=== PATIENT | male | born 1955 | race African-American/Black ===

== ENCOUNTER 2016-09-23 00:40 | Inpatient (IN) ==
[2016-09-23] MEDS ORDERED: ZOFRAN IV PRN (04:29)
[2016-09-23] MEDS ORDERED: TYLENOL PO PRN (04:29)
[2016-09-23] MEDS: NS 1,000 ML IV SCH ×2 (04:30→13:53)
[2016-09-23] MEDS: HUMALOG SUBQ SCH ×4 (06:29→20:34)
[2016-09-23] MEDS: PRILOSEC PO SCH (06:29)
[2016-09-23] MEDS: ZOSYN 3.375 GM/NS 3.375 GM/50 ML IVPB IV SCH ×3 (06:39→18:00)
[2016-09-23 07:03] LABS: BASO% 0.2 % (0.0-0.8); EOS# 0.01 X1000 (0.0-0.7); EOS% 0.1 % (0.0-10.0); HEMATOCRIT 31.3 % (42.0-52.0); HEMOGLOBIN 9.9 g/dL (14.0-18.0); IMM GRAN# 0.11 X1000 (0.0-0.04); IMM GRAN% 0.6 % (0.0-0.5); LYMPH# 0.35 X1000 (1.2-3.4); LYMPH% 1.9 % (20.5-51.1); MANUAL DIFF NEEDED? YES; MCH 25.1 PG (27-31); MCHC 31.6 g/dL (33-37); MCV 79.2 FL (81-99); MONO# 0.64 X1000 (0.11-0.59); MONO% 3.5 % (1.7-9.3); MPV 9.5 FL (7.4-10.4); NEUT% 93.7 % (42.2-75.2); PLT 140 X1000 (130-400); RBC 3.95 XMIL (4.7-6.1)
[2016-09-23 07:07] LABS: INR 1.39; PROTIME 14.9 Seconds (9.2-11.7); PTT 36.5 Seconds (22.0-36.0)
[2016-09-23 07:24] LABS: BANDS 12 % (0-1); LYMPHS 2 % (21-51); MONO 2 % (1-9)
[2016-09-23 07:26] LABS: IRON SATURATION 4 %; TIBC 180 ug/dL
[2016-09-23 07:28] LABS: ALBUMIN 2.8 g/dL (3.5-5.0); CALCIUM 8.3 mg/dL (8.8-10.2); POTASSIUM 3.6 mmol/L (3.5-5.1); TOTAL BILIRUBIN 1.1 mg/dL (0.20-1.00); TOTAL IRON 8 ug/dL (53-167); TOTAL PROTEIN 6.6 g/dL (6.3-8.3); UNBOUND IRON 172 ug/dL (112-346)
[2016-09-23 07:52] LABS: FERRITIN 626 ng/mL (30-400)
[2016-09-23 07:53] LABS: MAGNESIUM 0.9 mg/dL (1.5-2.7)
[2016-09-23 08:07] LABS: URINE MICRO REVIEW NEEDED? NO; URINE SOURCE CLEAN CATCH
--- NOTE | 2016-09-23 08:19 | HISTORY AND PHYSICAL ---
PRIMARY CARE PROVIDER: Nazario Lamas MD DATE AND TIME OF HISTORY AND PHYSICAL: 09/23/2016 at 0330 hours. CHIEF COMPLAINT: Nausea and vomiting and generalized weakness. HISTORY OF PRESENT ILLNESS: Mr. Lara is a 61-year-old male who presented to the ER at [facility] last night at approximately 7:10 with complaints of nausea, vomiting, as well as generalized weakness. The patient reports that recently he was treated for heat exhaustion/heat stroke on 09/07/2016. He was treated at [facility] ER. He was given some IV fluids and was discharged home. His mother, who was at bedside, who did provide most of the patient's history of present illness, as well as past medical history, did state that he did follow up with Dr. Lamas a day or 2 after his ER visit and did receive some outpatient orders for IV fluids, though she states that since seeing Dr. Lamas, the patient has had some generalized weakness though no other complaints. The patient states that yesterday he began having nausea and vomiting, as well as his weakness became worse, to the point that he was not able to get up and walk on his own. His mother also reports that on his ER visit on 09/07/2016, when he was treated for heat exhaustion, he was also diagnosed with a urinary tract infection. He did receive a 1 time dose of IV antibiotic and was discharged home with an oral antibiotic, though the patient does not remember the name of this medication. The patient denies any dizziness, headache, chest pain, shortness of breath. He does report a little bit of a productive cough with pink-tinged sputum for approximately 1 week since his initial ER visit on 09/07/2016. He denies any abdominal pain, back pain, diarrhea, dysuria, urinary frequency, or decreased urinary output. He denies any numbness, tingling, pain, or swelling in the extremities. He also denies any fever, body aches, or chills. He reports that yesterday prior to arriving to the ER, he did have 3 episodes of vomiting, the first of which was unclear emesis. The last 2 his mother reports were brown-colored emesis, which appeared to be coffee-ground in appearance, though the patient does deny any hematochezia or melena. The patient does have a previous history of having kidney stones and has had to have previous surgical procedures for treatment of this with Dr. Mortensen. In the ER at [place] , the patient's initial vital signs were temperature 99 degrees, heart rate 141, respirations 22 , blood pressure was 202/81, and oxygen saturation was 94% on room air. An EKG was performed, which showed sinus tachycardia at a rate of 131. Laboratory results revealed that the patient did have a nitrite positive urinary tract infection with a large amount of blood present. They did perform a CT of the abdomen and pelvis without contrast, which showed a left nephrolithiasis, left renal cyst, and a 7 mm distal left ureteral stone with moderate proximal hydronephrosis. Also, for the patient's reported weakness, they did perform a head CT also, which showed no acute intracranial findings. Chest x-ray, as well as a abdomen flat and left lateral decubitus were performed , which showed no acute abnormalities. Dr. Hwang, the ER physician at [facility], did contact Dr. Mortensen and notified him of the patient. He has accepted the patient and will see him in the morning after he has been transferred. Dr. Hwang did contact Dr. Pepper with the hospitalist service who did accept the patient, and the patient has been transferred and placed on CIC for inpatient admission. REVIEW OF SYSTEMS: A 12-point review of systems was conducted with the patient , and all were negative except for pertinent positives mentioned in the above HPI. PAST MEDICAL HISTORY: 1. Hypertension. 2. Diabetes mellitus type 2. 3. Hyperlipidemia. 4. Gout. 5. Previous history of nephrolithiasis. PAST SURGICAL HISTORY: 1. Right lower extremity surgery for a fracture. 2. Cystoscopic exam. 3. Ureteroscopy with stone extraction. 4. Lithotripsy x2. SOCIAL HISTORY: The patient is a former smoker. He smoked 1 pack per day for approximately 28 years and reports that he quit smoking approximately 8 years ago. He denies any alcohol or illicit drug use. He currently works for the [employer] [place] [employer]. He states that he does live alone. FAMILY HISTORY: His mother has a history of chronic kidney disease, lupus, hypertension, congestive heart failure. His father has a history of stroke and diabetes mellitus. He also has a sister who has a history of Crohn disease. ALLERGIES: The patient reports no known allergies. HOME MEDICATIONS: 1. Omeprazole 40 mg p.o. daily. 2. Lovastatin 20 mg p.o. every night at bedtime. 3. Zoloft 50 mg p.o. daily. 4. Aspirin 81 mg p.o. daily. 5. Lisinopril 20 mg p.o. b.i.d. 6. Metformin 1000 mg p.o. b.i.d. DIAGNOSTIC DATA: Laboratory results, white blood cell count is 10, hemoglobin 10.4, hematocrit 32.5, platelet count is 174,000. Sodium 138, potassium 3.4, chloride 98, bicarbonate 23, BUN 23, creatinine 1.5, GFR is 58, calcium 7.9. Liver function tests are within normal limits. CK 33, CK- MB 1, myoglobin 44.6, troponin 0.011. Serum glucose was 250. Lipase was 14. PTT was 29.4, PT 13.2, INR 1.29. EKG showed sinus tachycardia with possible left atrial enlargement at a rate of 131 with a QTc of 578. CT of the abdomen and pelvis showed that the right kidney appeared normal, but the left was markedly abnormal. There is moderate hydronephrosis and perinephric stranding. There were also several stones in the right renal pelvis ranging in size up to 14 mm. There was also a 3 cm cyst projecting from the posterolateral midpole of the right kidney. Also noted is a 7 mm stone in the distal left ureter proximal to the UVJ. CT of the head showed no acute intracranial findings. X-ray abdomen flat and left lateral decubitus showed no acute abnormality. Chest x-ray, single-view chest showed no acute abnormality. These were all per radiology that was performed at [facility]. The above laboratory results were also obtained from records from [facility] as well. PHYSICAL EXAMINATION: VITAL SIGNS: Temperature 99.7 degrees, heart rate 110, respirations 18, blood pressure 131/75, oxygen saturation is 100% on nasal cannula at 2 liters. GENERAL: Mr. Lara is a 61-year-old male who was resting in the inpatient bed. He was in no acute distress. He was awake, alert, and able to answer all questions appropriately, though the patient did appear to be slow to respond to questions and did sometimes have to be asked a question more than once before he would answer. His mother, who was at bedside at the time, did provide a lot of the history of present illness, as well as past medical history for the patient. HEENT: Head was atraumatic, normocephalic. Pupils were equal, round, reactive to light, and were 3 mm bilaterally and brisk. Subconjunctivae were slightly pale. Oral mucosa was moist. Oropharynx was clear. NECK: Supple. Trachea midline. No carotid bruits noted upon auscultation bilaterally. CARDIOVASCULAR: The patient has normal S1 and S2. No murmurs, gallops, rubs appreciated with a slightly tachycardic rate that is regular. PULMONARY: The patient has symmetrical chest expansion bilaterally. Lung sounds were clear to auscultation in bilateral full mckeon except for he did have very fine crackles noted in bilateral bases. He is not in any respiratory distress. ABDOMEN: Soft and nontender. It does not appear to be distended, though the patient does have a protuberant abdomen noted. Bowel sounds were present in all 4 quadrants and were slightly hypoactive. EXTREMITIES: No cyanosis, clubbing, or edema noted. Pulse, motor and sensory were intact in all extremities. Pedal pulses were 3+ bilaterally. INTEGUMENTARY: The patient's skin color is normal for his race. It is warm, dry, and intact. No lesions or sores noted. NEUROLOGICAL: The patient is alert and oriented to person, place, time, and situation, though as previously mentioned he did appear to be slow to respond to questions at times. Also, he did have to be asked a question more than once to be prompted to answer, though when he did, he did respond to questions appropriately. Cranial nerves 2 through 12 appear to be grossly intact, though the patient does have some generalized weakness noted. ASSESSMENT AND PLAN: 1. Ureterolithiasis. The patient does have a previous history of this and has undergone previous surgery with Dr. Mortensen. Dr. Mortensen is aware of the patient and is going to see him this morning. We have placed a consultation for him, and we will await his evaluation and further management of this. 2. Urinary tract infection. We have placed the patient on Zosyn 3.375 grams intravenously every 6 hours. We have also placed a urine culture, as well as blood cultures and will await those results and continue to follow. 3. Fluid volume depletion. The patient was given 2 liters of normal saline bolus in the emergency room at [facility]. We will continue fluid hydration with normal saline at 125 mL/hour. We will monitor his intake and output closely. 4. Generalized weakness. As previously mentioned in the history of present illness, the patient's mother reports that he has had generalized weakness since he was treated for his heat exhaustion/heat stroke on 09/07/2016 at [facility]. The patient did state that yesterday his weakness did worsen to where he was not able to ambulate on his own. CT head noncontrast was performed at [facility], which showed no acute intracranial abnormality, though for further evaluation of this, as well as the patient is having some symptoms of being slow to respond to questions, we have ordered an MRI without contrast on Sunday, as well as a Neurology consultation, and we will continue to follow. 5. Diabetes mellitus type 2. The patient normally takes metformin, though given his acute kidney injury, we will place him on a sliding scale lispro insulin per low-dose protocol. 6. Acute kidney injury. There was mention of a diagnosis from the ER physician at [facility] of chronic kidney disease, but the patient denies any previous history of this. We do not have any recent labs to compare his current renal function to. The patient does have an elevated creatinine of 1.5. We will continue with fluid hydration. We will avoid nephrotoxic medications and renally dose medications as necessary. 7. Hypertension. The patient normally takes lisinopril 20 mg twice a day, though given his acute kidney injury, we will hold this at this time and place him on Norvasc 5 mg by mouth daily, and we will continue to monitor his blood pressure closely. 8. Hyperlipidemia. We will continue his lovastatin. 9. Microcytic anemia. The patient does not have a previous known history of anemia. We will order an anemia profile for further evaluation of this. He denies any hematochezia or melena, though his mother states that his last 2 vomiting episodes did have emesis that appeared to be coffee-ground in appearance. We have placed a Hemoccult stool as well for further evaluation of this. 10. Deep vein thrombosis prophylaxis will be provided with sequential compression devices at this time given that the patient is a possible surgical patient. 11. The patient will placed on CIC for close monitoring with telemetry. He will have vital signs, as well as neurological checks every 4 hours. We will do aspiration precautions, incentive spirometry, strict intake and output. He will be nothing by mouth until he is evaluated by Dr. Mortensen. We have placed orders for repeat morning labs of CBC, CMP, coagulation studies, troponin, as well as hemoglobin A1c, blood culture, and urine culture. Further orders and recommendations pending hospital course, diagnostic studies, and physician evaluation. Dictated by JINNY Schneider for Marvel Blank MD cc: Marvel Blank MD MTDD
[2016-09-23 08:23] LABS: UR AMPHETAMINES QUAL NONE DETECTED (NONE DETECT); UR BARBITUATES QUAL NONE DETECTED (NONE DETECT); UR BENZODIAZEPIN QUAL NONE DETECTED (NONE DETECT); UR CANNABINOIDS QUAL NONE DETECTED (NONE DETECT); UR COCAINE QUAL NONE DETECTED (NONE DETECT); UR METHADONE QUAL NONE DETECTED (NONE DETECT); UR OPIATES QUAL NONE DETECTED (NONE DETECT); UR OXYCODONE QUAL NONE DETECTED (NONE DETECT); UR PCP QUAL NONE DETECTED (NONE DETECT)
[2016-09-23 08:25] LABS: BILIRUBIN URINE NEGATIVE (NEGATIVE); BLOOD URINE LARGE (NEGATIVE); COLOR YELLOW; GLUCOSE URINE NEGATIVE (NEGATIVE); LEUKOCYTES URINE NEGATIVE (NEGATIVE); NITRITE URINE NEGATIVE (NEGATIVE); PH URINE 5.5; PROTEIN URINE 70 mg/dL (NEGATIVE); SP GRAVITY URINE 1.018; TURBIDITY URINE HAZY (CLEAR); UROBILINOGEN URINE NORMAL (NORMAL)
[2016-09-23 08:26] LABS: UR EPITHELIAL CELLS <10 /HPF (<10); URINE BACTERIA NEGATIVE /HPF
[2016-09-23] MEDS ORDERED: MAGNESIUM SULFATE 4 GM/S.W.I. 4 GM/100 ML IVPB IV ONE (08:28)
[2016-09-23] MEDS ORDERED: NORVASC PO SCH (09:00)
[2016-09-23] MEDS ORDERED: ZOLOFT PO SCH ×2 (09:00)
[2016-09-23] MEDS ORDERED: DIPRIVAN 1% ONE (10:54)
[2016-09-23] MEDS ORDERED: FENTANYL ONE (10:55)
[2016-09-23] MEDS ORDERED: XYLOCAINE-MPF 2% ONE (10:55)
[2016-09-23] MEDS ORDERED: QUELICIN (DOSE) ONE (10:55)
[2016-09-23] MEDS ORDERED: ZOFRAN ONE (11:50)
[2016-09-23] MEDS ORDERED: OFIRMEV 1000 MG/ISOTONIC SOLN 1,000 MG/100 ML BOTTLE ONE (12:28)
--- NOTE | 2016-09-23 14:13 | PROGRESS NOTE ---
DATE: 09/23/2016 SUBJECTIVE: Mr. Lara was admitted overnight apparently because of nausea, vomiting, generalized weakness was transferred from [facility]. Just a while ago I was called by the urologist Dr. Mortensen who said he went in and deployed stent and when he went in there was just a lot of pus draining from the kidney and patient was hypotensive as well which he seems to be getting septic. OBJECTIVE: Vital signs: Blood pressure was 150/80, pulse of 122, respiration rate of 38 and patient had a temperature of 102.6 degrees. General: Mr. Lara is a 61-year-old male. He is in bed. Did not seem to be in any remarkable distress. HEENT: Mucosa is pink and moist. Anicteric. Acyanotic. Neck: Supple. Chest: Good air entry bilateral. No crepitations. No rhonchi. Cardiovascular: Regular rate and rhythm. Abdomen: Soft. Mildly tender in the right side. WARP KNIT OPERATOR: Patient is awake, alert and oriented x4. There is no focal neurological deficit. LABORATORY DATA: WBC is 18.55, hemoglobin is 9.9, platelet count of 140,000, there is 12% of bands on the peripheral smear. Chemistry is reviewed. Creatinine is 1.5. Magnesium is 0.09. A CT scan which is not in the system but I think was done in [facility] revealed that there was moderate hydronephrosis and perinephric stranding on the left and also multiple stones in the right. ASSESSMENT: 1. Sepsis secondary to left pyelonephritis with hydronephrosis and perinephric stranding. The patient is status post cystoscopic exam with double stent deployment in the left ureter, according to the report from Dr. Mortensen there was a lot of pus draining went he deployed the stent. Patient also was said to be hypotensive, tachycardic, febrile, white count is high. We will therefore keep him in the ICU overnight to make sure he is stable and he does not need any pressors. If he remains stable will be able to transfer him out of the ICU tomorrow. 2. Nephrolithiasis. 3. Fluid volume depletion. Will continue gentle hydration. 4. Generalized weakness likely due to underlying infection. 5. Diabetes mellitus. 6. Dyslipidemia. 7. Iron deficiency anemia. 8. Critical hypomagnesemia. Will continue to replace this. 9. Renal failure. Creatinine is 1.5. We do not have any baseline. Will continue to hydrate the patient and repeat his labs for tomorrow morning. PLAN: We are going to transfer the patient from recovery room to ICU. I have already notified the ICU charge nurse and also the patient family members who were in the waiting room. As I said I have discussed the case as well with the urologist on board. CRITICAL TIME SPENT: 45 minutes. cc: MD Marvel Lechuga MD
--- NOTE | 2016-09-23 14:48 | CONSULTATION ---
DATE OF CONSULTATION: 09/23/2016 ATTENDING AND REFERRING PHYSICIAN: Hospitalist. HISTORY OF PRESENT ILLNESS: This 61-year-old male has a history of renal lithiasis. He states he had ureteroscopy and stone extraction over 10 years ago. He states this has occurred several times. He denies previous shockwave lithotripsy. He denies any other urologic surgery. He denies any voiding problems. He is not taking any medication for his prostate. He states he has an occasional urinary tract infection treated with oral antibiotics, the last time several years ago. He states he has not had anything to eat since yesterday. PAST MEDICAL HISTORY: Hypertension, diabetes, recent problems with heat exhaustion. CURRENT MEDICATIONS: Documented on the chart. PAST SURGICAL HISTORY: Right lower extremity fracture with pinning as noted in the HPI. SOCIAL HISTORY: No tobacco or alcohol use. He denies any recent tobacco or alcohol use. ALLERGIES: No known drug allergies. REVIEW OF SYSTEMS: He denies any problems with heart disease, strokes, seizures, pulmonary, or bowel problems. SOCIAL HISTORY: He states he works for the [employer], and recently had to be taken to the hospital because of heat problems. PHYSICAL EXAMINATION: General: An obese, age apparent, normally developed, black male, oriented in all ways and cooperative. HEENT: Normal for age. Lungs: Clear. Cardiovascular: Regular rate and rhythm. Abdomen: Obese soft, nontender. No hepatosplenomegaly or masses. Normal bowel sounds. Back: Mild left CVA tenderness. Right side normal. : Normal male. Both testes down. Scrotal exam is normal. No inguinal hernias. Rectal: Deferred until surgery. Extremities: No clubbing, cyanosis, or edema. Neuro: No focal deficits. DIAGNOSTIC DATA: CT scan was performed at another facility. The report said a 7 mm left ureteral stone with obstruction. LABORATORY EVALUATION: He has a white count of 18.55, hemoglobin 9.9, hematocrit 31.3, platelets are 140,000. His serum electrolytes are normal. BUN 27, creatinine 1.5. Calcium is 8.3. Uric acid level not obtained. IMPRESSION: Left ureteral stone with obstruction, elevated white count. PLAN: Cystoscopic exam, left ureteroscopy, laser lithotripsy, stone basket extraction of fragments, placement of left double-J stent. The planned procedure, benefits versus risks, possible complications, including, but not limited to, bleeding, infection, not being able to get to the stone, need for stent placement and further surgery was discussed. He seems to understand and desires to proceed. cc: MD Marvel Hilton MD
--- NOTE | 2016-09-23 16:14 | OPERATIVE NOTE ---
PROCEDURE DATE: 09/23/2016 SURGEON: Dr. Carlos Mortensen. PREOPERATIVE DIAGNOSIS: Left distal ureteral stone with high-grade obstruction. POSTOPERATIVE DIAGNOSIS: Left distal ureteral stone with high-grade obstruction. PROCEDURE PERFORMED: Cystoscopic exam, left ureteroscopy, laser lithotripsy of stone, basket extraction of fragments, placement of a left double-J stent. ANESTHESIA: General endotracheal. FINDINGS: Cystoscopic exam: Urethra - greater than 21 Bangladeshi, without stricture. Prostate - mild hypertrophy of the lateral lobes, elevated bladder neck, length approximately 3.5 to 4 cm. Bladder - normal ureteral orifices bilaterally. There was bullous edema around the left ureteral orifice. There were multiple small crystalline like material in the bladder, probable uric acid crystals that were irrigated out. Minimal trabeculation. No diverticula. No papillary lesions. Left ureteroscopy reveals an approximate 8 mm stone in the left distal ureter that was causing high-grade obstruction. After the stone was bypassed, a large amount of thick purulent fluid came out of the left ureter. Some of this was sent to Pathology for culture and sensitivities. Rectal exam reveals a prostate of about 40 g, smooth, and symmetric. INDICATION FOR PROCEDURE: This 61-year-old male has a several week history of not feeling well. He had he states heat stroke and thought it was from that. He developed severe left flank pain. He was seen in the emergency room where a CT stone search revealed a left distal ureteral stone with obstruction, hydronephrosis and left perinephric stranding. DESCRIPTION OF PROCEDURE: After informed consent was obtained from the patient, and him receiving IV antibiotics, he was taken to the main OR cystoscopy room and placed in the supine position. General endotracheal anesthesia was achieved. He was then placed in the low lithotomy position and prepped and draped in the usual sterile fashion for cystoscopic exam. A 21-Bangladeshi cystoscope was passed per the patient's urethra, prostate, and bladder with findings noted above. A 0.035 zip wire was passed through the cystoscope and engaged the left ureteral orifice but would not advance past the stone. A 5-Bangladeshi open ended ureteral catheter was advanced over the zip wire and it stabilized the wire so that the wire could go past the stone. A large amount of thick purulent exudate came out of the ureter after the stone was bypassed with the wire. The open- ended catheter was removed. The wire was advanced up to the kidney. It was moved to the side to act as a safety wire. A 7-Bangladeshi Storz semi rigid ureteroscope was advanced through the patient's urethra, prostate, and into the bladder. A 0.035 Sensor wire was passed through the ureteroscope and into the ureter. The ureteroscope was advanced over the Sensor wire and into the ureter without difficulty. The Sensor wire was removed. A 365 micron laser fiber was placed. The laser was set at 8 hertz and 8 sparks, and the stone was fragmented. A 4 wire Nitinol basket was placed and several passes were made to remove stone fragments. During this time of stone fragmentation and removal, thick purulent exudate came from above. The ureteroscope was removed. A 7-Bangladeshi 24 cm double-J stent was passed over the zip wire and up into the kidney. The renal end was verified by fluoroscopic exam, bladder end directly visualized. Stent removal string was removed. The bladder was irrigated and then left somewhat distended. The cystoscope was removed and an 18- Bangladeshi Chamberlain catheter was passed through the patient's urethra, prostate, and in the bladder. 10 mL sterile water placed in Chamberlain's balloon and the Chamberlain was placed to gravity drain. Again, very cloudy urine came from the bladder consistent with pus draining from the left kidney. He tolerated the procedure well. ESTIMATED BLOOD LOSS: Less than 1 mL. He was taken to the recovery room extubated and in good condition. He did have a fever to 102 and his systolic blood pressure was above 95. cc: MD Marvel Hilton MD
[2016-09-23] MEDS: FLOMAX PO SCH (17:31)
[2016-09-23] MEDS: MEVACOR PO SCH (20:34)
[2016-09-24] MEDS: ZOSYN 3.375 GM/NS 3.375 GM/50 ML IVPB IV SCH ×4 (00:11→18:12)
[2016-09-24 04:52] LABS: AGAP 13; ALBUMIN 2.3 g/dL (3.5-5.0); ALKALINE PHOSPHATASE 74 U/L (32-122); BASO% 0.2 % (0.0-0.8); BUN 27 mg/dL (8-22); CALCIUM 7.6 mg/dL (8.8-10.2); CHLORIDE 103 mmol/L (98-107); COSMO 288; EOS# 0.03 X1000 (0.0-0.7); EOS% 0.3 % (0.0-10.0); GOT 15 U/L (10-34); GPT 18 U/L (10-44); HEMATOCRIT 26.7 % (42.0-52.0); HEMOGLOBIN 8.5 g/dL (14.0-18.0); IMM GRAN# 0.04 X1000 (0.0-0.04); IMM GRAN% 0.4 % (0.0-0.5); LYMPH# 0.59 X1000 (1.2-3.4); LYMPH% 5.2 % (20.5-51.1); MANUAL DIFF NEEDED? YES; MCH 25.3 PG (27-31); MCHC 31.8 g/dL (33-37); MCV 79.5 FL (81-99); MONO# 0.36 X1000 (0.11-0.59); MONO% 3.2 % (1.7-9.3); MPV 9.9 FL (7.4-10.4); NEUT% 90.7 % (42.2-75.2); PLT 100 X1000 (130-400); POTASSIUM 3.4 mmol/L (3.5-5.1); RBC 3.36 XMIL (4.7-6.1); SODIUM 141 mmol/L (136-145); TCO2 25 mmol/L (25-35); TOTAL BILIRUBIN 0.63 mg/dL (0.20-1.00); TOTAL PROTEIN 6.2 g/dL (6.3-8.3)
[2016-09-24] MEDS: NS 1,000 ML IV SCH ×2 (05:02→18:12)
[2016-09-24 05:07] LABS: BANDS 1 % (0-1); EOS 1 % (1-10); LYMPHS 1 % (21-51); MONO 6 % (1-9)
[2016-09-24] MEDS: HUMALOG SUBQ SCH ×4 (06:08→20:48)
[2016-09-24] MEDS: PRILOSEC PO SCH (06:09)
[2016-09-24] MEDS: FLOMAX PO SCH (09:31)
--- NOTE | 2016-09-24 11:33 | PROGRESS NOTE ---
DATE: 09/24/2016 SUBJECTIVE: Today, Mr. Lara refers to be doing a lot better. He is awake and conversational. Does not have any major complaints. OBJECTIVE: Vital Signs: Blood pressure is 117/73, pulse of 88, respirations are 20, temperature is 98.2 degrees. General Examination: Mr. Lara is a 61-year-old, male. He is in bed, not seemingly distressed. HEENT: Mucosa is pink and moist. Anicteric and acyanotic. Neck: Supple. Chest: Clear. Cardiovascular: Regular rate and rhythm. There are no murmurs, no rubs, no gallops. Abdomen: Soft. Mildly tender to the left side. Bowel sounds are present. There is no hepatosplenomegaly. Extremities: No pedal edema. NAVIGATION TEACHER: Patient is awake and alert, and oriented x4. There is no focal neurological deficit. Laboratory Data: WBC is down to 11.27, hemoglobin is 8.5, platelet count of 100,000. Sodium is 141, potassium is 3.4, chloride is 103, bicarb is 25, creatinine is 1.4. So far, blood cultures, 2 out of 2 are positive for gram-negative rods. ASSESSMENT: 1. Sepsis secondary to left pyelonephritis with hydronephrosis and perinephric stranding. 2. Left hydronephrosis with distal ureteral stone, status post stone extraction and a J-stent placement by Dr. Mortensen. Today is day 1 postoperatively. Patient seems to be doing well. 3. Gram-negative marzena bacteremia, likely from the pyelonephritis. 4. Acute kidney injury. We will continue with intravenous fluids. 5. Generalized weakness, likely due to the underlying infection. 6. Diabetes mellitus. 7. Relative iron deficiency. 8. Hypomagnesemia. This was replaced. We will repeat this. PLAN: In general, I think Mr. Lara seems to be doing fine. He is afebrile. He has been afebrile since yesterday. We will continue with the current IV antibiotic which is Zosyn. We will be pending the culture on the ID and sensitivity on the gram negative marzena. Mr. Lara is clinically stable and vitals are stable so we are going to move him from the ICU to the regular floor. cc: Mark K. MD Marvel Wing MD
[2016-09-24] MEDS: MEVACOR PO SCH (20:49)
[2016-09-24] MEDS: NORCO-10 PO PRN (20:54)
[2016-09-25] MEDS: NORCO-10 PO PRN ×2 (01:03→14:33)
[2016-09-25] MEDS: ZOSYN 3.375 GM/NS 3.375 GM/50 ML IVPB IV SCH ×3 (01:03→13:59)
[2016-09-25] MEDS: PRILOSEC PO SCH (06:07)
--- NOTE | 2016-09-25 06:12 | EKG Report ---
Test Performed on : 09/23/2016 07:40:06 AM Test Reason : Nephrolithiasis,UTI,Poss. Surgical Paitent Blood Pressure : / mmHG Vent. Rate : 119 BPM Atrial Rate : 119 BPM P-R Int : 170 ms QRS Dur : 086 ms QT Int : 316 ms P-R-T Axes : 031 -23 021 degrees QTc Int : 444 ms Sinus tachycardia. Inferior infarct , age undetermined Possible Anterior infarct , age undetermined Abnormal ECG No previous ECGs available Confirmed by Angel Dill MD ([id number]) on 09/26/2016 6:02:24 AM
[2016-09-25] MEDS: HUMALOG SUBQ SCH ×2 (06:17→13:59)
[2016-09-25 07:01] LABS: AGAP 10; BUN 22 mg/dL (8-22); CALCIUM 7.6 mg/dL (8.8-10.2); CHLORIDE 104 mmol/L (98-107); COSMO 286; MAGNESIUM 1.7 mg/dL (1.5-2.7); POTASSIUM 3.6 mmol/L (3.5-5.1); SODIUM 141 mmol/L (136-145); TCO2 27 mmol/L (25-35)
[2016-09-25 07:34] LABS: BASO% 0.1 % (0.0-0.8); EOS# 0.07 X1000 (0.0-0.7); LYMPH# 0.57 X1000 (1.2-3.4); LYMPH% 8.5 % (20.5-51.1); MANUAL DIFF NEEDED? YES; MCH 25.4 PG (27-31); MCHC 30.8 g/dL (33-37); MCV 82.5 FL (81-99); MONO# 0.26 X1000 (0.11-0.59); MONO% 3.9 % (1.7-9.3); MPV 10.8 FL (7.4-10.4); NEUT% 86.5 % (42.2-75.2); PLT 77 X1000 (130-400); RBC 3.15 XMIL (4.7-6.1)
--- NOTE | 2016-09-25 07:49 | Diag Imaging Result Doc PS360 ---
EXAM: FLUROSCOPY CYSTO HISTORY: LT STONE REMOVAL/STENT PLACEMENT TECHNIQUE: 10 films submitted COMPARISON: None. FINDINGS: Early film show placement of a wire within the left ureter. The catheter was placed over the wire and the wire was removed. IMPRESSION: Left ureteral stent placed. Electronically signed by Karthik Juan 09/25/2016 7:47 AM
[2016-09-25 08:38] LABS: EOS 3 % (1-10); LYMPHS 7 % (21-51); MONO 4 % (1-9)
[2016-09-25] MEDS: FLOMAX PO SCH (09:42)
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
[2016-09-25 17:50] VITALS: BP 128/77
[2016-09-25] MEDS ORDERED: KEFLEX PO SCH (21:00)
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
== END 2016-09-25 18:17 | disposition home or self-care (01) ==
LOC: 3S 00:40 → SUATTDRO 00:40 → ICU 13:13 → 4N 09-24 12:48
PROVIDERS: ADMIT Internal Medicine; ATTEND Internal Medicine